=== PATIENT | female | born 1995 | race Caucasian/White ===

== ENCOUNTER → 2018-03-22 | Outpatient (CLI) | payer OTHER | END | disposition home or self-care (01) | LOC: C.LABSPEC 13:39 | PROVIDERS: ATTEND Physician Assistant | DX: Z01.419 Encounter for gynecological examination (general) (routine) without abnormal findings (principal) ==

== ENCOUNTER → 2018-06-25 | Outpatient (CLI) | payer OTHER | END | disposition home or self-care (01) | LOC: C.LABSPEC 15:48 | PROVIDERS: ATTEND Obstetrics & Gynecology | DX: Z30.430 Encounter for insertion of intrauterine contraceptive device (principal) ==

== ENCOUNTER 2021-05-01 21:15 | Inpatient (IN) ==
[2021-05-01 22:45] LABS: Basophils # (auto) 0.03 K/uL (0-0.2); Basophils % (auto) 0.3 %; Eosinophils # (auto) 0.01 K/uL (0-0.5); Eosinophils % (auto) 0.1 %; Hematocrit (blood only) 40.6 % (37-47); Hemoglobin 14.3 g/dL (12.0-16.0); Immature Granulocytes # (auto) 0.01 K/uL (0.00-0.02); Immature Granulocytes % (auto) 0.1 %; Lymphocytes # (auto) 1.42 K/uL (1.2-3.4); Lymphocytes % (auto) 14.3 %; Mean Corpuscular Hemoglobin 32.4 pg (25-34); Mean Corpuscular Hgb Conc 35.2 g/dL (32-36); Mean Corpuscular Volume 91.9 fL (80-100); Mean Platelet Volume 9.5 fL (7.4-10.4); Monocytes # (auto) 0.39 K/uL (0.11-0.59); Monocytes % (auto) 3.9 %; Neutrophils # (auto) 8.07 K/uL (1.4-6.5); Neutrophils % (auto) 81.3 %; Platelet Count 272 K/uL (130-400); RDW Standard Deviation 40.8 fL (36.4-46.3); Red Blood Count 4.42 M/uL (4.2-5.4); White Blood Count 9.93 K/uL (4.8-10.8)
[2021-05-01 23:01] LABS: Appearance Urine Clear (Clear); Bilirubin Urine Negative (Negative); Blood Urine Negative (Negative); Color Urine Yellow; Glucose Urine UA Negative (Negative); Ketones Urine Trace (Negative); Leukocyte Esterase Urine Negative (Negative); Nitrite Urine Negative (Negative); Protein Urine Negative (Negative); Specific Gravity Urine 1.016 (1.000-1.030); Urobilinogen Urine Negative (Negative); pH Urine 7.5 (4.5-7.5)
[2021-05-01] MEDS ORDERED: LORazepam 1 MG TAB SL STA (23:08)
--- NOTE | 2021-05-01 23:08 | Emergency Department Note ---
Impression & Plan Depression with suicidal ideation ED Provider Note Name: PRESTON WANG Age: 25 Sex: F Arrives Via: Walk-In Informant: Patient, Mother ED Provider: Brian Mott MD Chief Complaint: Mental health evaluation Impression: Depression with suicidal Ideation Medical Decision Makin yr old female with history hypothyroid and depression/anxiety. Rapidly wo rsening depression/anxiety with increasing suicidal ideation/plans. Superficial self cutting this evening and called mother when she thought she may try killing herself. Medically clear. Calmed with some ativan po. Accepted on [address] [place] [address] Triage/Nursing Notes reviewed by Me Differentials:Mood disorder, infection, hypoglycemia, electrolyte abnorma lities, cardiac sources, intracerebral event, toxicologic, trauma, neurologic, as well as other pathologies. Vital Signs: reviewed and remarkable for no significant abnormalities Interventions: ativan 0.5mg po Labs:Reviewed and remarkable for no significant abnormalities Consults:Mental Health Case Management - Hospitalization indicated. Plan: Disposition:Hospitalization. Condition: Good History of Present Illness:25 yr old female arrives for evaluation of depression. Patient with history depression/anxiety since she was 18 yrs old. Notes on and off with episodes of severe depression, suicidal thoughts and then years of doing well. Over the last year worsening depression and anxiety with covid crisis. She notes boyfriend broke up with her 3 weeks ago and she has spiralled since. Increasingly thinking of suicide and "dark thoughts." Notes she has periodically had plans to kill self but has not attempted. Tonight severe anxiety and multiple superficial abrasions left forearm and left lower leg. She was worried she was going to kill herself and called mother who brought her in to ED for further evaluation. Denies etoh/drugs/tobacco. ROS: See above HPI for pertinent positives & negatives. A total of 10 systems reviewed and were otherwise negative. Past Medical History:Hypothyroid, Depression/Anxiety Past Surgical History:Right ankle Family History:Suicide and depression Social History:[employer], no etoh/drugs, no smoking Home Medications:See Below Allergies:Fentanyl, PNC Vitals:Blood Pressure: 128/70, Pulse 61, RR 16, T 37.1C, O2 98% on RA Physical Exam: GENERAL: Patient is sad/anxious appearing and in moderate distress. EYES: No scleral icterus, unremarkable pupils. ENT: Mucous membranes moist, no nasal congestion. NECK: No masses appreciated, nomeningismus, trachea is midline. RESPIRATORY: No dyspnea. Clear to auscultation and equal bilaterally. No wheeze, no rhonchi. CARDIOVASCULAR: Regular rate and rhythm.No murmurs, rubs, gallops appreciated. GASTROINTESTINAL: Abdomen soft, non-tender, no peritonitis.Bowel sounds positive.No masses appreciated. BACK: No midline tenderness, no CVA tenderness EXTREMITIES: Normal motion all extremities, no cyanosis, no edema. NEUROLOGIC: Alert and oriented, no acute motor or sensory deficits, no focal weakness, cranial nerves grossly intact. SKIN: No rash, no jaundice, no diaphoresis. PSYCH: Very sad, depressed, admits suicidal ideation without specific plan GCS: 15 ED Course: Times/Reassessments: much improved with Ativan, agreeable to inpatient mental health management Brian Mott MD Past Med/Surg History Medical History (Updated 05/02/21 @ 07:04 by Brian Mott MD) Anxiety Hypothyroid Family History Other Diabetes Social History Smoking Status: Never smoker Preferred Language: Tunisian Communication Ability: Effective Account Representative Required: No Beliefs That Will Affect Care: None Feels Safe at Home: Yes Assistive Devices: None Allergies Allergies Allergy/AdvReac Type Severity Reaction Status Date / Time fentanyl Allergy Severe Anaphylaxis, Verified 05/01/21 22:21 SOB, HIVES Penicillins Allergy Unknown FATHER HX Verified 05/01/21 22:21 - ANAPHYLAXIS Home Meds Home Medications Medication Instructions Recorded Confirmed buspirone 10 mg PO TID 07/28/18 05/01/21 levothyroxine 75 mcg PO DAILY 07/28/18 05/01/21 escitalopram oxalate 10 mg PO DAILY 05/01/21 05/01/21 lansoprazole 30 mg PO BID 05/01/21 05/01/21 lorazepam 0.5 mg PO TID PRN MDD 1.5 tablets 05/01/21 05/01/21 daily Results & Data (ED) Vital Signs Vital Signs - 24 hr 05/01/21 21:39 Temperature 36.9 C Temperature Source Temporal Artery Scan Pulse Rate 95 H Respiratory Rate 19 Respiratory Effort / Characteristics Non-Labored Respiratory Depth Normal Respiratory Pattern Regular Blood Pressure 138/93 Blood Pressure Mean 108 Pulse Oximetry 97 Oxygen Delivery Method Room Air Sepsis Recent Fever Within 48 Hours No Sepsis New/Unexplained Change in Mental Status N/A Sepsis Action Taken by Nursing No Action Required Laboratory Data Result diagrams: 05/01/21 22:30 05/01/21 22:30 Lab Results 05/01/21 05/01/21 05/01/21 Range/Units 22:30 22:30 22:30 WBC 9.93 (4.8-10.8) K/uL RBC 4.42 (4.2-5.4) M/uL Hgb 14.3 (12.0-16.0) g/dL Hct 40.6 (37-47) % MCV 91.9 (80-100) fL MCH 32.4 (25-34) pg MCHC 35.2 (32-36) g/dL RDW Std Deviation 40.8 (36.4-46.3) fL RDW Coeff of [place] 12.0 (11.5-14.5) % Plt Count 272 (130-400) K/uL MPV 9.5 (7.4-10.4) fL Immature Gran % (Auto) 0.1 % Neut % (Auto) 81.3 % Lymph % (Auto) 14.3 % [place] % (Auto) 3.9 % Eos % (Auto) 0.1 % Baso % (Auto) 0.3 % Neut # (Auto) 8.07 H (1.4-6.5) K/uL Lymph # (Auto) 1.42 (1.2-3.4) K/uL [place] # (Auto) 0.39 (0.11-0.59) K/uL Eos # (Auto) 0.01 (0-0.5) K/uL Baso # (Auto) 0.03 (0-0.2) K/uL Immature Gran # (Auto) 0.01 (0.00-0.02) K/uL Sodium 138 (136-145) mmol/L Potassium 3.8 (3.5-5.1) mmol/L Chloride 105 (98-107) mmol/L Carbon Dioxide 25 (21-32) mmol/L Anion Gap 8.0 (3-11) BUN 13 (7-18) mg/dl Creatinine 0.95 (0.6-1.2) mg/dl Est Cr Clr Drug Dosing 118.6 ml/min Est GFR ( Amer) 97.8 ml/min Est GFR (Non-Af Amer) 84.4 ml/min BUN/Creatinine Ratio 13.1 (10-20) Glucose 105 H (70-99) mg/dl Calcium 9.3 (8.5-10.1) mg/dl Total Bilirubin 1.1 H (0.2-1) mg/dl AST 30 (15-37) U/L ALT 46 (12-78) U/L Alkaline Phosphatase 51 (45-117) U/L Total Protein 8.5 H (6.4-8.2) gm/dl Albumin 4.3 (3.4-5.0) gm/dl Globulin 4.2 H (2.5-4.0) gm/dl Albumin/Globulin Ratio 1.0 (0.9-2) TSH 0.677 (0.300-4.500) uIu/ml Urine Color Urine Appearance (Clear) Urine pH (4.5-7.5) Ur Specific [place] (1.000-1.030) Urine Protein (Negative) Urine Glucose (UA) (Negative) Urine Ketones (Negative) Urine Blood (Negative) Urine Nitrite (Negative) Urine Bilirubin (Negative) Urine Urobilinogen (Negative) Ur Leukocyte Esterase (Negative) Urine Test (Negative) Nasal Screen MRSA (PCR) (Negative) Salicylates < 1.7 L (2.8-20) mg/dl Urine Opiates Screen (Neg) Ur Methadone, Qual (Neg) Acetaminophen < 2 L (10-30) ug/ml Urine Barbiturates (Neg) Ur Phencyclidine (PCP) (Neg) U Amphetamin/Meth Scrn (Neg) MDMA (Ecstasy) Screen (Neg) U Benzodiazepines Scrn (Neg) Ur Cocaine Metabolite (Neg) U Marijuana (THC) Screen (Neg) Ethyl Alcohol mg/dL (0-3) mg/dl COVID-19 Eval Order SARS-CoV-2 (PCR) (Negative) 05/01/21 05/01/21 05/01/21 Range/Units 22:30 22:34 22:34 WBC (4.8-10.8) K/uL RBC (4.2-5.4) M/uL Hgb (12.0-16.0) g/dL Hct (37-47) % MCV (80-100) fL MCH (25-34) pg MCHC (32-36) g/dL RDW Std Deviation (36.4-46.3) fL RDW Coeff of [place] (11.5-14.5) % Plt Count (130-400) K/uL MPV (7.4-10.4) fL Immature Gran % (Auto) % Neut % (Auto) % Lymph % (Auto) % [place] % (Auto) % Eos % (Auto) % Baso % (Auto) % Neut # (Auto) (1.4-6.5) K/uL Lymph # (Auto) (1.2-3.4) K/uL [place] # (Auto) (0.11-0.59) K/uL Eos # (Auto) (0-0.5) K/uL Baso # (Auto) (0-0.2) K/uL Immature Gran # (Auto) (0.00-0.02) K/uL Sodium (136-145) mmol/L Potassium (3.5-5.1) mmol/L Chloride (98-107) mmol/L Carbon Dioxide (21-32) mmol/L Anion Gap (3-11) BUN (7-18) mg/dl Creatinine (0.6-1.2) mg/dl Est Cr Clr Drug Dosing ml/min Est GFR ( Amer) ml/min Est GFR (Non-Af Amer) ml/min BUN/Creatinine Ratio (10-20) Glucose (70-99) mg/dl Calcium (8.5-10.1) mg/dl Total Bilirubin (0.2-1) mg/dl AST (15-37) U/L ALT (12-78) U/L Alkaline Phosphatase (45-117) U/L Total Protein (6.4-8.2) gm/dl Albumin (3.4-5.0) gm/dl Globulin (2.5-4.0) gm/dl Albumin/Globulin Ratio (0.9-2) TSH (0.300-4.500) uIu/ml Urine Color Yellow Urine Appearance Clear (Clear) Urine pH 7.5 (4.5-7.5) Ur Specific [place] 1.016 (1.000-1.030) Urine Protein Negative (Negative) Urine Glucose (UA) Negative (Negative) Urine Ketones Trace H (Negative) Urine Blood Negative (Negative) Urine Nitrite Negative (Negative) Urine Bilirubin Negative (Negative) Urine Urobilinogen Negative (Negative) Ur Leukocyte Esterase Negative (Negative) Urine Test (Negative) Nasal Screen MRSA (PCR) (Negative) Salicylates (2.8-20) mg/dl Urine Opiates Screen Neg (Neg) Ur Methadone, Qual Neg (Neg) Acetaminophen (10-30) ug/ml Urine Barbiturates Neg (Neg) Ur Phencyclidine (PCP) Neg (Neg) U Amphetamin/Meth Scrn Neg (Neg) MDMA (Ecstasy) Screen Neg (Neg) U Benzodiazepines Scrn Neg (Neg) Ur Cocaine Metabolite Neg (Neg) U Marijuana (THC) Screen Neg (Neg) Ethyl Alcohol mg/dL < 3.0 (0-3) mg/dl COVID-19 Eval Order SARS-CoV-2 (PCR) (Negative) 05/01/21 05/02/21 05/02/21 Range/Units 22:34 02:10 02:10 WBC (4.8-10.8) K/uL RBC (4.2-5.4) M/uL Hgb (12.0-16.0) g/dL Hct (37-47) % MCV (80-100) fL MCH (25-34) pg MCHC (32-36) g/dL RDW Std Deviation (36.4-46.3) fL RDW Coeff of [place] (11.5-14.5) % Plt Count (130-400) K/uL MPV (7.4-10.4) fL Immature Gran % (Auto) % Neut % (Auto) % Lymph % (Auto) % [place] % (Auto) % Eos % (Auto) % Baso % (Auto) % Neut # (Auto) (1.4-6.5) K/uL Lymph # (Auto) (1.2-3.4) K/uL [place] # (Auto) (0.11-0.59) K/uL Eos # (Auto) (0-0.5) K/uL Baso # (Auto) (0-0.2) K/uL Immature Gran # (Auto) (0.00-0.02) K/uL Sodium (136-145) mmol/L Potassium (3.5-5.1) mmol/L Chloride (98-107) mmol/L Carbon Dioxide (21-32) mmol/L Anion Gap (3-11) BUN (7-18) mg/dl Creatinine (0.6-1.2) mg/dl Est Cr Clr Drug Dosing ml/min Est GFR ( Amer) ml/min Est GFR (Non-Af Amer) ml/min BUN/Creatinine Ratio (10-20) Glucose (70-99) mg/dl Calcium (8.5-10.1) mg/dl Total Bilirubin (0.2-1) mg/dl AST (15-37) U/L ALT (12-78) U/L Alkaline Phosphatase (45-117) U/L Total Protein (6.4-8.2) gm/dl Albumin (3.4-5.0) gm/dl Globulin (2.5-4.0) gm/dl Albumin/Globulin Ratio (0.9-2) TSH (0.300-4.500) uIu/ml Urine Color Urine Appearance (Clear) Urine pH (4.5-7.5) Ur Specific [place] (1.000-1.030) Urine Protein (Negative) Urine Glucose (UA) (Negative) Urine Ketones (Negative) Urine Blood (Negative) Urine Nitrite (Negative) Urine Bilirubin (Negative) Urine Urobilinogen (Negative) Ur Leukocyte Esterase (Negative) Urine Test Negative (Negative) Nasal Screen MRSA (PCR) (Negative) Salicylates (2.8-20) mg/dl Urine Opiates Screen (Neg) Ur Methadone, Qual (Neg) Acetaminophen (10-30) ug/ml Urine Barbiturates (Neg) Ur Phencyclidine (PCP) (Neg) U Amphetamin/Meth Scrn (Neg) MDMA (Ecstasy) Screen (Neg) U Benzodiazepines Scrn (Neg) Ur Cocaine Metabolite (Neg) U Marijuana (THC) Screen (Neg) Ethyl Alcohol mg/dL (0-3) mg/dl COVID-19 Eval Order Covid19 [facility] SARS-CoV-2 (PCR) NEGATIVE (Negative) 05/02/21 Range/Units 03:14 WBC (4.8-10.8) K/uL RBC (4.2-5.4) M/uL Hgb (12.0-16.0) g/dL Hct (37-47) % MCV (80-100) fL MCH (25-34) pg MCHC (32-36) g/dL RDW Std Deviation (36.4-46.3) fL RDW Coeff of [place] (11.5-14.5) % Plt Count (130-400) K/uL MPV (7.4-10.4) fL Immature Gran % (Auto) % Neut % (Auto) % Lymph % (Auto) % [place] % (Auto) % Eos % (Auto) % Baso % (Auto) % Neut # (Auto) (1.4-6.5) K/uL Lymph # (Auto) (1.2-3.4) K/uL [place] # (Auto) (0.11-0.59) K/uL Eos # (Auto) (0-0.5) K/uL Baso # (Auto) (0-0.2) K/uL Immature Gran # (Auto) (0.00-0.02) K/uL Sodium (136-145) mmol/L Potassium (3.5-5.1) mmol/L Chloride (98-107) mmol/L Carbon Dioxide (21-32) mmol/L Anion Gap (3-11) BUN (7-18) mg/dl Creatinine (0.6-1.2) mg/dl Est Cr Clr Drug Dosing ml/min Est GFR ( Amer) ml/min Est GFR (Non-Af Amer) ml/min BUN/Creatinine Ratio (10-20) Glucose (70-99) mg/dl Calcium (8.5-10.1) mg/dl Total Bilirubin (0.2-1) mg/dl AST (15-37) U/L ALT (12-78) U/L Alkaline Phosphatase (45-117) U/L Total Protein (6.4-8.2) gm/dl Albumin (3.4-5.0) gm/dl Globulin (2.5-4.0) gm/dl Albumin/Globulin Ratio (0.9-2) TSH (0.300-4.500) uIu/ml Urine Color Urine Appearance (Clear) Urine pH (4.5-7.5) Ur Specific [place] (1.000-1.030) Urine Protein (Negative) Urine Glucose (UA) (Negative) Urine Ketones (Negative) Urine Blood (Negative) Urine Nitrite (Negative) Urine Bilirubin (Negative) Urine Urobilinogen (Negative) Ur Leukocyte Esterase (Negative) Urine Test (Negative) Nasal Screen MRSA (PCR) Negative (Negative) Salicylates (2.8-20) mg/dl Urine Opiates Screen (Neg) Ur Methadone, Qual (Neg) Acetaminophen (10-30) ug/ml Urine Barbiturates (Neg) Ur Phencyclidine (PCP) (Neg) U Amphetamin/Meth Scrn (Neg) MDMA (Ecstasy) Screen (Neg) U Benzodiazepines Scrn (Neg) Ur Cocaine Metabolite (Neg) U Marijuana (THC) Screen (Neg) Ethyl Alcohol mg/dL (0-3) mg/dl COVID-19 Eval Order SARS-CoV-2 (PCR) (Negative) Administered Medications Discontinued Medications Buspirone HCl (Buspirone 5 Mg Tab) 10 mg PO TID DEEPA Stop: 06/01/21 02:34 Last Admin: 05/02/21 02:56 Dose: 10 mg Documented by: [id number] Lorazepam (Lorazepam 1 Mg Tab) 0.5 mg SL NOW STA Stop: 05/01/21 23:09 Last Admin: 05/01/21 23:17 Dose: 0.5 mg Documented by: [id number] Discharge Plan Visit Data Chief Complaint: Mental Health Evaluation Stated Complaint: MENTAL HEALTH EVALUATION ED Provider: Brian Mott Discharge Problem: Depression with suicidal ideation Discharge Instructions Interventions: ED Discharge Assessment Last Done: 05/02/21 05:12
[2021-05-01 23:17] LABS: Albumin Level 4.3 gm/dl (3.4-5.0); BUN Creatinine Ratio 13.1 (10-20); Calcium 9.3 mg/dl (8.5-10.1); Creatinine Clr Calc Pharmacy 118.6 ml/min; Est GFR (African American) 97.8 ml/min; Est GFR (Non-African American) 84.4 ml/min; Potassium 3.8 mmol/L (3.5-5.1)
[2021-05-01 23:19] LABS: Acetaminophen < 2 ug/ml (10-30)
[2021-05-01 23:20] LABS: Salicylate < 1.7 mg/dl (2.8-20)
[2021-05-01 23:27] LABS: Bilirubin,Total 1.1 mg/dl (0.2-1); Globulin 4.2 gm/dl (2.5-4.0); Thyroid Stimulating Hormone 0.677 uIu/ml (0.300-4.500); Total Protein 8.5 gm/dl (6.4-8.2)
[2021-05-01 23:46] LABS: Amphetamines+Metham, Urine Neg (Neg); Barbiturates, Urine Neg (Neg); Benzodiazepine, Urine Neg (Neg); Cocaine, Urine Neg (Neg); MDMA (Ecstacy), Urine Neg (Neg); Methadone, Urine Neg (Neg); Opiate, Urine Neg (Neg); Phencyclidine, Urine Neg (Neg)
[2021-05-02 00:54] LABS: Pregnancy Test, Urine Negative (Negative)
[2021-05-02] MEDS ORDERED: LORazepam 0.5 MG TAB PO PRN (02:31)
[2021-05-02] MEDS ORDERED: busPIRone 5 MG TAB PO SCH (02:35)
[2021-05-02] MEDS ORDERED: hydrOXYzine HCl 25 MG TAB PO PRN ×2 (05:46)
[2021-05-02] MEDS ORDERED: ACETAMINOPHEN 325 MG TAB PO PRN (05:46)
[2021-05-02] MEDS ORDERED: BISMUTH SUBSALICYLATE LIQD 236 ML PO PRN (05:46)
[2021-05-02] MEDS ORDERED: SODIUM CHLORIDE 0.65% NA SOLN 45 ML (OCEAN) PRN (05:46)
[2021-05-02] MEDS ORDERED: MAGNESIUM HYDROXIDE SUSP 30 ML UDC PO PRN (05:46)
[2021-05-02] MEDS ORDERED: ALUMINUM/MAGNESIUM SUSP 30 ML UDC PO PRN (05:46)
[2021-05-02] MEDS: LEVOTHYROXINE SODIUM 75 MCG TABLET PO SCH (08:19)
[2021-05-02] MEDS ORDERED: NON-FORMULARY MEDICATION (Lansoprazole 30 mg capsule,delayed release(DR/EC)) PO SCH (09:00)
[2021-05-02] MEDS ORDERED: LEVOTHYROXINE 75 MCG PO SCH (09:00)
[2021-05-02] MEDS ORDERED: ESCITALOPRAM OXALATE 10 MG TAB PO SCH (09:00)
[2021-05-02] MEDS ORDERED: ARIPIprazole 1 MG/ML ORAL SOLN 150 ML BTL PO SCH (11:15)
[2021-05-02] MEDS: ESCITALOPRAM OXALATE 10 MG TAB PO SCH (13:33)
[2021-05-02] MEDS: PANTOprazole 40 MG TAB PO SCH ×2 (13:33→21:54)
[2021-05-02] MEDS: ARIPIprazole 1 MG/ML ORAL SOLN 150 ML BTL PO SCH (13:34)
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
[2021-05-02] MEDS: busPIRone 5 MG TAB PO SCH (17:17)
[2021-05-03] MEDS: LEVOTHYROXINE SODIUM 75 MCG TABLET PO SCH (08:24)
[2021-05-03 08:51] LABS: Glucose Fasting 88 mg/dl (70-99)
[2021-05-03 08:58] LABS: Chol HDL Ratio 5; Cholesterol 170 mg/dl (0-200); HDL Cholesterol 33 mg/dl; LDL Cholesterol Calculated 105 mg/dl; Triglycerides 159 mg/dl (0-150); VLDL Cholesterol 32 mg/dl
--- NOTE | 2021-05-03 09:08 | Psychiatric Progress Note ---
Date of Service May 03, 2021 Impression / Recommendations Impression Rosio is a 25 yo with hx of suicidal gestures, severe anxiety with racing thoughts/beakthrough panic, who reports periods of hypomania on Lexapro, cycling off of SSRI, and hx of esophageal erosions associated with stress. They report worsening SI and sleep following a break up and present with pressured speech and restlessness. Differential includes but is not limited to major depression, cyclothymia, bipolar II disorder, complext PTSD, ARTIS with or without co-morbid panic disorder. Rosio denies body dysmorphia but prefers gender neutral pronouns and does described periods of disordered eating when dysregulated. Rosio exhibits "all or nothing" symptoms and is sensitive to rejection with self-harm which may also represent emerging borderline personality disorder. 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 Requesting increase to 2.5 so pharmacy will provide tablet and not liquid for dose equivalent. Reviewed likely titration to 5 mg Abilify prior to discharge. May need to consider holding Lexapro 5 mg daily. 05/02/21: The patient was admitted to [facility] ([facility] inpatient mental health unit) on q15 min checks (behavioral with suicide precautions) for safety. The patient will participate in group, recreational, and milieu therapies and will be offered additional individual and family sessions as clinically appropriate. They seem activated on higher doses of Lexapro but would like to continue Buspar as longstanding benefit for anxiety. Will decrease Lexapro to 5 mg. Reviewed mood stabilizer options. Patient does not want to gain weight but also needs "help now" rather than slow titration required by Lamictal. Risks/benefits/alternatives reviewed re: Abilify 2 mg daily and likely titrate, chosen as augmentation strategy for depressed phases and patient dose report some compulsive behaviors around symmetry/etc when thoughts are racing. Discussion included but was not limited to need for TD and metabolic monitoring and that Lamictal may be an option longer term. They state that they will not continue a med that causes weight gain as plans to have some plastic surgery in June to remove excess skin, breast lift and liposuction of abdomen from previous weight loss. (2) Generalized anxiety disorder: 05/03/21: Encouraged Vistaril prn pm or hs anxiety rather than additional Buspar as the latter seems to have interefered with sleep. 05/02/21: Buspar BID for now, shift dosing to am/earlier evening for better coverage. Prefer Vistaril prn over Ativan as not a controlled substance. States they don't take Ativan often due to fear of sedation. will substitute pantoprazole for home proton pump inhibitor. (3) Staph skin infection: 05/03/21: had MRSA nasal swab in ED. No lesion noted on ED physical. Given report of drainage in shower from reddened area on lower abdomen will attempt to swab to determine if additional isolation precautions are necessary. States uses Neosporin and Hibiclens at home. Risk Factors Assessment Do You Have Access To A Gun?: No Protective Factors Assessment Employed: No Interval History Chief Complaint "I don't feel that much different, maybe a little nauseated, Keith and my mom said I sounded good on the phone". Review of Systems Sleep Information Total Hours of Sleep: 5.5 Meal Information Percent Meal Consumed - Breakfast: 10 Percent Meal Consumed - Lunch: 75 Percent Meal Consumed - Dinner: 85 Subjective Subjective Patient was seen & assessed and interval progress reviewed with treatment team. 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 Was able to reach her professors yesterday and all are supportive of her taking time/getting treatment which is a relief for her. Apparently does have a hx of doxycycline resistant staph on abdomen/thighs/buttocks and reported a small area of reddening/drainage on her lower abdomen. Physical Exam Psychiatric Orientation: alert and oriented x 3 Apperance: appropriately groomed Eye Contact: good eye contact Motor Behavior: no abnormal motor movements (but restless) Speech: + pressured speech Affect: + elated affect Mood: + anxious mood Thought Process: + circumstantial thought process Thought Content: reality based without delusions Homicidal Thoughts: denies homicidal thoughts Hallucinations: no auditory hallucinations and no visual hallucinations Cognition: language grossly intact; + attention not intact Estimated Intelligence: consistent with education level Insight: + limited insight Judgement: + limited judgement Vital Signs (Past 24 Hours) Last Vital Signs Temp 36.5 C 05/03/21 06:00 Pulse 86 05/03/21 06:28 Resp 16 05/03/21 06:00 BP 117/79 05/03/21 06:28 Pulse Ox 98 05/02/21 05:51 Results & Data ([facility]) Laboratory Results Laboratory Results - last 24 hr 05/03/21 08:17 Fasting Glucose 88 Triglycerides 159 H Cholesterol 170 LDL Cholesterol, Calc 105 VLDL Cholesterol, Calc 32 HDL Cholesterol 33 Cholesterol/HDL Ratio 5 Current Inpatient Medications Current Inpatient Medications: Current Inpatient Medications Acetaminophen (Acetaminophen 325 Mg Tab) 650 mg PO Q4H PRN PRN Reason: Headache or Minor Fever Stop: 06/01/21 05:45 Al Hydrox/Mg Hydrox/Simethicone (Aluminum/Magnesium Susp 30 Ml Udc) 30 ml PO Q4H PRN PRN Reason: GI Upset Stop: 06/01/21 05:45 Aripiprazole (Aripiprazole 1 Mg/Ml Oral Soln 150 Ml Btl) 2 mg PO QAM DEEPA Stop: 06/01/21 11:14 Last Admin: 05/02/21 13:34 Dose: 2 mg Documented by: Bismuth Subsalicylate (Bismuth Subsalicylate Liqd 236 Ml) 15 ml PO PRN PRN PRN Reason: Loose Stool Stop: 06/01/21 05:45 Buspirone HCl (Buspirone 5 Mg Tab) 10 mg PO BID17 [facility] Stop: 06/01/21 16:59 Last Admin: 05/02/21 17:17 Dose: 10 mg Documented by: Escitalopram Oxalate (Escitalopram Oxalate 10 Mg Tab) 5 mg PO QAM DEEPA Stop: 06/01/21 11:14 Last Admin: 05/02/21 13:33 Dose: 5 mg Documented by: Hydroxyzine HCl (Hydroxyzine Hcl 25 Mg Tab) 50 mg PO HSZ PRN PRN Reason: Insomnia Stop: 06/01/21 05:45 Hydroxyzine HCl (Hydroxyzine Hcl 25 Mg Tab) 25 mg PO Q4H PRN PRN Reason: Anxiety Stop: 06/01/21 05:45 Last Admin: 05/02/21 09:56 Dose: 25 mg Documented by: Levothyroxine Sodium (Levothyroxine Sodium 75 Mcg Tablet) 75 mcg PO DAILYBB [facility] Stop: 06/01/21 07:59 Last Admin: 05/03/21 08:24 Dose: 75 mcg Documented by: Magnesium Hydroxide (Magnesium Hydroxide Susp 30 Ml Udc) 30 ml PO DAILY PRN PRN Reason: Constipation Stop: 06/01/21 05:45 Pantoprazole Sodium (Pantoprazole 40 Mg Tab) 40 mg PO BID [facility] Stop: 05/05/21 21:01 Last Admin: 05/02/21 21:54 Dose: 40 mg Documented by: Sodium Chloride (Sodium Chloride 0.65% Na Soln 45 Ml ([place])) 1 - 2 sprays NA PRN PRN PRN Reason: Nasal Dryness/Congestion Stop: 06/01/21 05:45 Mental Health & Subst Abuse Tx Therapist Name of Therapist: [facility] Physician Name of Family Practice Physician: none Post Discharge Appointments Primary Care Physician Name Of Family Doctor: Pauly Dobbins PA-C Primary Care Date of Appointment with PCP: 05/06/21 Time of Appointment with PCP: 1:30 PM
[2021-05-03] MEDS: busPIRone 5 MG TAB PO SCH ×2 (09:13→17:34)
[2021-05-03] MEDS: ESCITALOPRAM OXALATE 10 MG TAB PO SCH (09:13)
[2021-05-03] MEDS: PANTOprazole 40 MG TAB PO SCH ×2 (09:14→20:58)
[2021-05-03] MEDS: ARIPIprazole 1 MG/ML ORAL SOLN 150 ML BTL PO SCH (09:15)
[2021-05-03] MEDS ORDERED: NEOMYCIN/POLYMYX/BACITR OINT 15 GM TUBE EXT PRN (11:21)
[2021-05-03] MEDS: CHLORHEXIDINE GLUCONATE 4% SOL 4OZ BTL EXT PRN (14:37)
[2021-05-04] MEDS: LEVOTHYROXINE SODIUM 75 MCG TABLET PO SCH (08:52)
[2021-05-04] MEDS: CHLORHEXIDINE GLUCONATE 4% SOL 4OZ BTL EXT PRN (08:54)
[2021-05-04] MEDS ORDERED: ARIPiprazole 5 MG TAB PO SCH (09:00)
[2021-05-04] MEDS ORDERED: ARIPIprazole 1 MG/ML ORAL SOLN 150 ML BTL PO SCH (09:00)
[2021-05-04] MEDS: ESCITALOPRAM OXALATE 10 MG TAB PO SCH (09:36)
[2021-05-04] MEDS: busPIRone 5 MG TAB PO SCH ×2 (09:36→17:22)
[2021-05-04] MEDS: PANTOprazole 40 MG TAB PO SCH ×2 (09:38→21:18)
--- NOTE | 2021-05-04 14:47 | Psychiatric Progress Note ---
Date of Service May 04, 2021 Impression / Recommendations Impression Rosio is a 25 yo with hx of suicidal gestures, severe anxiety with racing thoughts/beakthrough panic, who reports periods of hypomania on Lexapro, cycling off of SSRI, and hx of esophageal erosions associated with stress. They report worsening SI and sleep following a break up and present with pressured speech and restlessness. Differential includes but is not limited to major depression, cyclothymia, bipolar II disorder, complext PTSD, ARTIS with or without co-morbid panic disorder. Rosio denies body dysmorphia but prefers gender neutral pronouns and does described periods of disordered eating when dysregulated. Rosio exhibits "all or nothing" symptoms and is sensitive to rejection with self-harm which may also represent emerging borderline personality disorder. 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 every morning to target mood stability. Lexapro dosage remains at 5 mg p.o. Every morning. 05/03/21: bipolar II likely dx--c/o mild N and dizziness today that could be Lexapro discontinuation syndrome due to decrease or related to Abilify. Requesting increase to 2.5 so pharmacy will provide tablet and not liquid for dose equivalent. Reviewed likely titration to 5 mg Abilify prior to discharge. May need to consider holding Lexapro 5 mg daily. 05/02/21: The patient was admitted to the [facility] ([facility] mental health unit) on q15 min checks (behavioral with suicide precautions) for safety. The patient will participate in group, recreational, and milieu therapies and will be offered additional individual and family sessions as clinically appropriate. They seem activated on higher doses of Lexapro but would like to continue Buspar as longstanding benefit for anxiety. Will decrease Lexapro to 5 mg. Reviewed mood stabilizer options. Patient does not want to gain weight but also needs "help now" rather than slow titration required by Lamictal. Risks/benefits/alternatives reviewed re: Abilify 2 mg daily and likely titrate, chosen as augmentation strategy for depressed phases and patient dose report some compulsive behaviors around symmetry/etc when thoughts are racing. Discussion included but was not limited to need for TD and metabolic monitoring and that Lamictal may be an option longer term. They state that they will not continue a med that causes weight gain as plans to have some plastic surgery in June to remove excess skin, breast lift and liposuction of abdomen from previous weight loss. (2) Generalized anxiety disorder: 05/03/21: Encouraged Vistaril prn pm or hs anxiety rather than additional Buspar as the latter seems to have interefered with sleep. 05/02/21: Buspar BID for now, shift dosing to am/earlier evening for better coverage. Prefer Vistaril prn over Ativan as not a controlled substance. States they don't take Ativan often due to fear of sedation. will substitute pantoprazole for home proton pump inhibitor. (3) Staph skin infection: 05/03/21: had MRSA nasal swab in ED. No lesion noted on ED physical. Given report of drainage in shower from reddened area on lower abdomen will attempt to swab to determine if additional isolation precautions are necessary. States uses Neosporin and Hibiclens at home. Risk Factors Assessment Do You Have Access To A Gun?: No Protective Factors Assessment Employed: No Interval History Chief Complaint "I am feeling better, may be close to baseline, are you going to increase my Abilify?". Review of Systems Sleep Information Total Hours of Sleep: 6 Meal Information Percent Meal Consumed - Breakfast: 100 Percent Meal Consumed - Lunch: 100 Percent Meal Consumed - Dinner: 100 Subjective Subjective Patient was seen & assessed and interval progress reviewed with treatment team nursing and social work Patient was seen today in social workers office. She denies any side effects of the medication, no side effects observed. Patient reported feeling more stable with regards to her mood. She claims that this despite very low dose of Abilify, but is agreeable to an increased dosage for tomorrow morning. Patient feels as if the medication is helping her to remain calm during the day. Patient also inquired about her Lexapro dosage, which is being held at 5 mg due to the hypomanic symptoms she is exhibiting. Patient acknowledges that she continues to exhibit hypomanic symptoms including poor sleep as well as pressured speech. Does report that last night was one of her best nights of sleep. States that she is reluctant to come completely off the Lexapro as it is prevents her from experiencing panic attacks which she had formerly experienced 3 times per week. I spent greater than 30 minutes with the patient, 50% of which was dedicated to counselling and coordination of care Physical Exam Psychiatric Orientation: alert and oriented x 3 Apperance: appropriately groomed Eye Contact: good eye contact Motor Behavior: no abnormal motor movements (but restless) and + psychomotor agitation (restless foot tap) Speech: + pressured speech Affect: + anxious affect, + tearful affect and + elated affect Mood: + anxious mood Thought Process: + circumstantial thought process Thought Content: reality based without delusions Homicidal Thoughts: denies homicidal thoughts Hallucinations: no auditory hallucinations and no visual hallucinations Cognition: language grossly intact; + attention not intact Estimated Intelligence: consistent with education level Insight: + limited insight Judgement: + limited judgement Vital Signs (Past 24 Hours) Last Vital Signs Temp 36.4 C L 05/04/21 06:42 Pulse 81 05/04/21 06:43 Resp 16 05/04/21 06:42 BP 106/70 05/04/21 06:43 Pulse Ox 98 05/02/21 05:51 Results & Data ([facility]) Current Inpatient Medications Current Inpatient Medications: Current Inpatient Medications Acetaminophen (Acetaminophen 325 Mg Tab) 650 mg PO Q4H PRN PRN Reason: Headache or Minor Fever Stop: 06/01/21 05:45 Al Hydrox/Mg Hydrox/Simethicone (Aluminum/Magnesium Susp 30 Ml Udc) 30 ml PO Q4H PRN PRN Reason: GI Upset Stop: 06/01/21 05:45 Aripiprazole (Aripiprazole 5 Mg Tab) 5 mg PO QAM DEEPA Stop: 06/04/21 08:59 Bismuth Subsalicylate (Bismuth Subsalicylate Liqd 236 Ml) 15 ml PO PRN PRN PRN Reason: Loose Stool Stop: 06/01/21 05:45 Buspirone HCl (Buspirone 5 Mg Tab) 10 mg PO BID17 DEEPA Stop: 06/01/21 16:59 Last Admin: 05/04/21 09:36 Dose: 10 mg Documented by: Chlorhexidine Gluconate (Chlorhexidine Gluconate 4% [place] 4oz Btl) 1 btl EXT PRN PRN PRN Reason: NEEDED Stop: 06/02/21 14:00 Last Admin: 05/04/21 08:54 Dose: 1 btl Documented by: Escitalopram Oxalate (Escitalopram Oxalate 10 Mg Tab) 5 mg PO QAM DEEPA Stop: 06/01/21 11:14 Last Admin: 05/04/21 09:36 Dose: 5 mg Documented by: Hydroxyzine HCl (Hydroxyzine Hcl 25 Mg Tab) 50 mg PO HSZ PRN PRN Reason: Insomnia Stop: 06/01/21 05:45 Hydroxyzine HCl (Hydroxyzine Hcl 25 Mg Tab) 25 mg PO Q4H PRN PRN Reason: Anxiety Stop: 06/01/21 05:45 Last Admin: 05/02/21 09:56 Dose: 25 mg Documented by: Levothyroxine Sodium (Levothyroxine Sodium 75 Mcg Tablet) 75 mcg PO DAILYBB DEEPA Stop: 06/01/21 07:59 Last Admin: 05/04/21 08:52 Dose: 75 mcg Documented by: Magnesium Hydroxide (Magnesium Hydroxide Susp 30 Ml Udc) 30 ml PO DAILY PRN PRN Reason: Constipation Stop: 06/01/21 05:45 Neomycin/Polymyxin/Bacitracin (Neomycin/Polymyx/Bacitr Oint 15 Gm Tube) 1 appln EXT BID PRN PRN Reason: Affected Skin Folds Stop: 06/02/21 11:20 Last Admin: 05/03/21 14:32 Dose: 1 appln Documented by: Pantoprazole Sodium (Pantoprazole 40 Mg Tab) 40 mg PO BID DEEPA Stop: 05/05/21 21:01 Last Admin: 05/04/21 09:38 Dose: 40 mg Documented by: Sodium Chloride (Sodium Chloride 0.65% Na Soln 45 Ml ([place])) 1 - 2 sprays NA PRN PRN PRN Reason: Nasal Dryness/Congestion Stop: 06/01/21 05:45 Mental Health & Subst Abuse Tx Therapist Name of Therapist: [facility]'s Date of Therapist Appointment: 05/09/21 Time of Therapist Appointment: 11am Therapy Appointment Comment: virtual Tractor Driver Name of Tractor Driver: none Post Discharge Appointments Primary Care Physician Name Of Family Doctor: Pauly Dobbins PA-C Primary Care Date of Appointment with PCP: 05/15/21 Time of Appointment with PCP: 9am Provider Appointment Comment: [address] Contact Information [place] Discharge [address] [place] [id number]
[2021-05-05] MEDS: LEVOTHYROXINE SODIUM 75 MCG TABLET PO SCH (08:06)
[2021-05-05] MEDS: ESCITALOPRAM OXALATE 10 MG TAB PO SCH (08:47)
[2021-05-05] MEDS: PANTOprazole 40 MG TAB PO SCH ×2 (08:48→22:29)
[2021-05-05] MEDS: busPIRone 5 MG TAB PO SCH ×2 (08:48→17:38)
[2021-05-05] MEDS: ARIPiprazole 5 MG TAB PO SCH (08:48)
--- NOTE | 2021-05-05 12:14 | Psychiatric Progress Note ---
Date of Service May 05, 2021 Impression / Recommendations Impression Rosio is a 25 yo with hx of suicidal gestures, severe anxiety with racing thoughts/beakthrough panic, who reports periods of hypomania on Lexapro, cycling off of SSRI, and hx of esophageal erosions associated with stress. They report worsening SI and sleep following a break up and present with pressured speech and restlessness. Differential includes but is not limited to major depression, cyclothymia, bipolar II disorder, complext PTSD, ARTIS with or without co-morbid panic disorder. Rosio denies body dysmorphia but prefers gender neutral pronouns and does described periods of disordered eating when dysregulated. Rosio exhibits "all or nothing" symptoms and is sensitive to rejection with self-harm which may also represent emerging borderline personality disorder. 05/03--improved from yesterday, more clearly hypomanic (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 Patient reports feeling better on current regimen. Lexapro dose remains low due to concerns of hypomania. 05/04/2021: Patient's dose of Abilify will be increased to 5 mg p.o. every morning to target mood stability. Lexapro dosage remains at 5 mg p.o. Every morning. 05/03/21: bipolar II likely dx--c/o mild N and dizziness today that could be Lexapro discontinuation syndrome due to decrease or related to Abilify. Requesting increase to 2.5 so pharmacy will provide tablet and not liquid for dose equivalent. Reviewed likely titration to 5 mg Abilify prior to discharge. May need to consider holding Lexapro 5 mg daily. 05/02/21: The patient was admitted to the [facility] ([facility] unit) on q15 min checks (behavioral with suicide precautions) for safety. The patient will participate in group, recreational, and milieu therapies and will be offered additional individual and family sessions as clinically appropriate. They seem activated on higher doses of Lexapro but would like to continue Buspar as longstanding benefit for anxiety. Will decrease Lexapro to 5 mg. Reviewed mood stabilizer options. Patient does not want to gain weight but also needs "help now" rather than slow titration required by [facility]kail[facility]. Risks/benefits/alternatives reviewed re: Abilify 2 mg daily and likely titrate, chosen as augmentation strategy for depressed phases and patient dose report some compulsive behaviors around symmetry/etc when thoughts are racing. Discussion included but was not limited to need for TD and metabolic monitoring and that Lamictal may be an option longer term. They state that they will not continue a med that causes weight gain as plans to have some plastic surgery in June to remove excess skin, breast lift and liposuction of abdomen from previous weight loss. (2) Generalized anxiety disorder: 05/03/21: Encouraged Vistaril prn pm or hs anxiety rather than additional Buspar as the latter seems to have interefered with sleep. 05/02/21: Buspar BID for now, shift dosing to am/earlier evening for better coverage. Prefer Vistaril prn over Ativan as not a controlled substance. States they don't take Ativan often due to fear of sedation. will substitute pantoprazole for home proton pump inhibitor. (3) Staph skin infection: 05/03/21: had MRSA nasal swab in ED. No lesion noted on ED physical. Given report of drainage in shower from reddened area on lower abdomen will attempt to swab to determine if additional isolation precautions are necessary. States uses Neosporin and Hibiclens at home. Risk Factors Assessment Do You Have Access To A Gun?: No Protective Factors Assessment Employed: No Interval History Chief Complaint "I feel okay". Review of Systems Sleep Information Total Hours of Sleep: 6.5 Meal Information Percent Meal Consumed - Breakfast: 100 Percent Meal Consumed - Lunch: 100 Percent Meal Consumed - Dinner: 90 Subjective Subjective Patient was seen & assessed and interval progress reviewed with treatment team nursing and social work Patient reports a good night of sleep and strong appetite. No side effects of the medication observed or reported. Patient denied adverse effects of the increased dose of Abilify. States that she feels better on the medication and is looking forward to her discharge. Patient attended groups and was engaging appropriately with peers. No acute iss ues at this time. Patient pressured speech and racing thought process is improving. I spent 30 minutes with the patient, 50% of which was dedicated to counselling and coordination of care Physical Exam Psychiatric Orientation: alert and oriented x 3 Apperance: appropriately groomed Eye Contact: good eye contact Motor Behavior: no abnormal motor movements (but restless) and + psychomotor agitation (restless foot tap) Speech: + pressured speech Affect: + anxious affect, + tearful affect and + elated affect Mood: + anxious mood Thought Process: + circumstantial thought process Thought Content: reality based without delusions Homicidal Thoughts: denies homicidal thoughts Hallucinations: no auditory hallucinations and no visual hallucinations Cognition: language grossly intact; + attention not intact Estimated Intelligence: consistent with education level Insight: + limited insight Judgement: + limited judgement Vital Signs (Past 24 Hours) Last Vital Signs Temp 36.5 C 05/05/21 06:40 Pulse 75 05/05/21 06:41 Resp 16 05/05/21 06:40 BP 120/88 05/05/21 06:41 Pulse Ox 98 05/02/21 05:51 Results & Data ([facility]) Current Inpatient Medications Current Inpatient Medications: Current Inpatient Medications Acetaminophen (Acetaminophen 325 Mg Tab) 650 mg PO Q4H PRN PRN Reason: Headache or Minor Fever Stop: 06/01/21 05:45 Al Hydrox/Mg Hydrox/Simethicone (Aluminum/Magnesium Susp 30 Ml Udc) 30 ml PO Q4H PRN PRN Reason: GI Upset Stop: 06/01/21 05:45 Aripiprazole (Aripiprazole 5 Mg Tab) 5 mg PO QAM [facility] Stop: 06/04/21 08:59 Last Admin: 05/05/21 08:48 Dose: 5 mg Documented by: Bismuth Subsalicylate (Bismuth Subsalicylate Liqd 236 Ml) 15 ml PO PRN PRN PRN Reason: Loose Stool Stop: 06/01/21 05:45 Buspirone HCl (Buspirone 5 Mg Tab) 10 mg PO [id number] [facility] Stop: 06/01/21 16:59 Last Admin: 05/05/21 08:48 Dose: 10 mg Documented by: Chlorhexidine Gluconate (Chlorhexidine Gluconate 4% Fabienne 4oz Btl) 1 btl EXT PRN PRN PRN Reason: NEEDED Stop: 06/02/21 14:00 Last Admin: 05/04/21 08:54 Dose: 1 btl Documented by: Escitalopram Oxalate (Escitalopram Oxalate 10 Mg Tab) 5 mg PO QAM [facility] Stop: 06/01/21 11:14 Last Admin: 05/05/21 08:47 Dose: 5 mg Documented by: Hydroxyzine HCl (Hydroxyzine Hcl 25 Mg Tab) 50 mg PO HSZ PRN PRN Reason: Insomnia Stop: 06/01/21 05:45 Hydroxyzine HCl (Hydroxyzine Hcl 25 Mg Tab) 25 mg PO Q4H PRN PRN Reason: Anxiety Stop: 06/01/21 05:45 Last Admin: 05/02/21 09:56 Dose: 25 mg Documented by: Levothyroxine Sodium (Levothyroxine Sodium 75 Mcg Tablet) 75 mcg PO DAILYBB DEEPA Stop: 06/01/21 07:59 Last Admin: 05/05/21 08:06 Dose: 75 mcg Documented by: Magnesium Hydroxide (Magnesium Hydroxide Susp 30 Ml Udc) 30 ml PO DAILY PRN PRN Reason: Constipation Stop: 06/01/21 05:45 Neomycin/Polymyxin/Bacitracin (Neomycin/Polymyx/Bacitr Oint 15 Gm Tube) 1 appln EXT BID PRN PRN Reason: Affected Skin Folds Stop: 06/02/21 11:20 Last Admin: 05/03/21 14:32 Dose: 1 appln Documented by: Pantoprazole Sodium (Pantoprazole 40 Mg Tab) 40 mg PO BID DEEPA Stop: 05/05/21 21:01 Last Admin: 05/05/21 08:48 Dose: 40 mg Documented by: Sodium Chloride (Sodium Chloride 0.65% Na Soln 45 Ml ([place])) 1 - 2 sprays NA PRN PRN PRN Reason: Nasal Dryness/Congestion Stop: 06/01/21 05:45 Mental Health & Subst Abuse Tx Therapist Name of Therapist: [facility] Date of Therapist Appointment: 05/09/21 Time of Therapist Appointment: 11am Therapy Appointment Comment: virtual Nurse Transplant Name of Nurse Transplant: none Post Discharge Appointments Primary Care Physician Name Of Family Doctor: Pauly Dobbins PA-C Primary Care Date of Appointment with PCP: 05/15/21 Time of Appointment with PCP: 9am Provider Appointment Comment: [address], [address] CHRISTOPHER Swanson Contact Information Discharge Discharge Address: [address] [place] [address]
[2021-05-06] MEDS: LEVOTHYROXINE SODIUM 75 MCG TABLET PO SCH (08:02)
[2021-05-06] MEDS: ARIPiprazole 5 MG TAB PO SCH (08:31)
[2021-05-06] MEDS: busPIRone 5 MG TAB PO SCH (08:31)
[2021-05-06] MEDS: ESCITALOPRAM OXALATE 10 MG TAB PO SCH (08:31)
[2021-05-06] MEDS: CHLORHEXIDINE GLUCONATE 4% SOL 4OZ BTL EXT PRN (09:13)
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
== END 2021-05-06 12:49 | disposition home or self-care (01) | DRG 883 ==
LOC: ED 21:15 → SUATTDRO 05-02 04:58 → 3S 05-02 04:58